=== PATIENT | female | born 1955 ===

== ENCOUNTER 2016-11-02 10:12 | Emergency (ER) | payer MEDICAID ==
[2016-11-02 10:22] VITALS: TEMP 99
--- NOTE | 2016-11-02 11:09 | ED PDOC ---
Arrival/HPI - History of Present Illness Time/Duration: Prior to Arrival Symptom Course: Unchanged Activities at Onset: Rest, Light Context: Home <Lazaro Banuelos - Last Filed: 11/02/16 13:59> - General Historian: Patient, Family <Ellen Garrison - Last Filed: 11/02/16 15:18> - General Chief Complaint: Psychiatric Evaluation Time Seen by Provider: 11/02/16 10:52 - History of Present Illness Narrative History of Present Illness (Text): 11/02/16 13:30 A 61 year old female whose past medical history includes NIDDM, brought in by son, present to the emergency department for a "psych evaluation". The son, who translated, states that the patients had generalized weakness and depression after loosing her . The son notes that the patient was seen by PMD yesterday and a prescription for a blood test was given. They request for all est to be conducted today. Patient denies symptoms of palpitations, homicidal and suicidal ideation, headache, dizziness, chest pain, abdominal pain, nausea, vomiting, diarrhea, shortness of breath, or any other complaint. 11/02/16 13:59 (Lazaro Banuelos) Past Medical History - Provider Review Nursing Documentation Reviewed: Yes <Lazaro Banuelos - Last Filed: 11/02/16 13:59> - Travel History If Yes, travel location?: [place] - Cardiac Hx Cardiac Disorders: No - Pulmonary Hx Respiratory Disorders: No - Neurological Hx Neurological Disorder: No - HEENT Hx HEENT Disorder: No - Renal Hx Renal Disorder: No - Endocrine/Metabolic Hx Endocrine Disorders: Yes Hx Diabetes Mellitus Type 2: Yes - Hematological/Oncological Hx Blood Disorders: No - Integumentary Hx Dermatological Disorder: No - Musculoskeletal/Rheumatological Hx Musculoskeletal Disorders: No - Gastrointestinal Hx Gastrointestinal Disorders: No - Genitourinary/Gynecological Hx Genitourinary Disorders: No - Psychiatric Hx Psychophysiologic Disorder: Yes Hx Substance Use: No <Ellen Garrison - Last Filed: 11/02/16 15:18> Family/Social History - Physician Review Nursing Documentation Reviewed: Yes Family/Social History: No Known Family HX <Lazaro Banuelos - Last Filed: 11/02/16 13:59> Smoking Status: Never Smoked Hx Alcohol Use: No Hx Substance Use: No <Ellen Garrison - Last Filed: 11/02/16 15:18> Allergies/Home Meds <VinLazaro - Last Filed: 11/02/16 13:59> <Ellen Garrison - Last Filed: 11/02/16 15:18> Allergies/Adverse Reactions: Allergies No Known Allergies Allergy (Verified 11/02/16 10:22) Home Medications: Home Meds Medication Instructions Recorded Confirmed Metformin HCl [Glucophage] 850 mg PO DAILY 11/02/16 11/02/16 Risperidone [Risperdal] 1 mg PO DAILY 11/02/16 11/02/16 Review of Systems - Review of Systems Constitutional: Normal Eyes: Normal ENT: Normal Respiratory: absent: SOB Cardiovascular: absent: Chest Pain, Palpitations Gastrointestinal: absent: Abdominal Pain, Diarrhea, Nausea, Vomiting Neurological: Other (Generalized weakness). absent: Headache, Dizziness Psychiatric: Depression. absent: Suicidal Ideation, Other (Homicidal Ideation) <MelvinanatolyLazaro - Last Filed: 11/02/16 13:59> Physical Exam Temperature: Afebrile Blood Pressure: Normal Pulse: Regular Respiratory Rate: Normal - Systems Exam Head: Present: Atraumatic, Normocephalic Pupils: Present: PERRL Extroacular Muscles: Present: EOMI Conjunctiva: Present: Normal Mouth: Present: Moist Mucous Membranes Neck: Present: Normal Range of Motion Respiratory/Chest: Present: Clear to Auscultation, Good Air Exchange. No: Respiratory Distress, Accessory Muscle Use Cardiovascular: Present: Regular Rate and Rhythm, Normal S1, S2. No: Murmurs Abdomen: Present: Normal Bowel Sounds. No: Tenderness, Distention, Peritoneal Signs Back: Present: Normal Inspection Upper Extremity: Present: Normal Inspection. No: Cyanosis, Edema Lower Extremity: Present: Normal Inspection. No: Edema Neurological: Present: GCS=15, CN II-XII Intact, Speech Normal Skin: Present: Warm, Dry, Normal Color. No: Rashes Psychiatric: Present: Alert, Oriented x 3, Normal Insight, Normal Concentration <Lazaro Banuelos - Last Filed: 11/02/16 13:59> Medical Decision Making - EKG Interpretation Interpreted by ED Physician: Yes Type: 12 lead EKG <Lazaro Banuelos - Last Filed: 11/02/16 13:59> Re-evaluation Time: 13:02 - Lab Interpretations Interpretation: All labs normal <Ellen Garrison - Last Filed: 11/02/16 15:18> ED Course and Treatment: 11/02/16 13:07 I was available for consultation during PA evaluation. The chart was reviewed by me, and I agree with disposition. The documented history was done by the physician formula technician. The documented physical exam was done by the physician formula technician. The documented procedures were done by the physician formula technician. (Lazaro Banuelos) 11/02/16 12:37 On re-eval, pt is stable, afebrile, hemodynamicaly stable. Non-toxic. Blood work review and appears normal. EKG, CXR, CT head- normal results. Pt is medically cleared for psych evaluation now. 11/02/16 13:02 Pt was seen by [facility] and psychiatricly cleared for outpt Fu. case discussed with ED attending and discharge recommend with outpt f/u now. On re-eavluation, pt is afebrile, hemodynamicaly stable. NOn-toxic. Neurologicaly intact. results review with son and pt, appears normal. Advised to F/U with PMD and Psychiatrist in 2-3 days for re-evaluation. Return to ED if any worsening or new changes. Pt left prior hip xray was performed and written discharge was given. (Ellen Garrison) - Lab Interpretations Lab Results: 11/02/16 11:45 11/02/16 11:45 Lab Results 11/02/16 12:00: Urine Color Yellow, Urine Appearance Clear, Urine pH 6.5, Ur Specific [place] 1.015, Urine Protein Negative, Urine Glucose (UA) Negative, Urine Ketones Negative, Urine Blood Negative, Urine Nitrate Negative, Urine Bilirubin Negative, Urine Urobilinogen 0.2, Ur Leukocyte Esterase Negative 11/02/16 11:45: Sodium 138, Potassium 4.0, Chloride 100, Carbon Dioxide 28, Anion Gap 14, BUN 21, Creatinine 0.6, Est GFR ( Amer) > 60, Est GFR (Non- Af Amer) > 60, Random Glucose 151 H, Calcium 9.0, Magnesium 1.9, Total Bilirubin 0.4, AST 21, ALT 24, Alkaline Phosphatase 84, Lactate Dehydrogenase 322 L, Total Creatine Kinase 37, Troponin I < 0.01, Total Protein 7.1, Albumin 3.8, Globulin 3.3, Albumin/Globulin Ratio 1.2 11/02/16 11:45: PT 10.4, INR 0.96, APTT 26.6 11/02/16 11:45: WBC 8.6, RBC 4.35, Hgb 13.2, Hct 38.7, MCV 89.0, MCH 30.3, MCHC 34.1, RDW 13.0, Plt Count 304, MPV 9.4, Gran % 58.3, Lymph % (Auto) 31.1, Hill % (Auto) 7.2 H, Eos % (Auto) 3.1, Baso % (Auto) 0.3, Gran # 4.99, Lymph # 2.7, Hill # 0.6, Eos # 0.3, Baso # 0.03 - RAD Interpretation Radiology Orders: 11/02/16 11:06 HEAD W/O CONTRAST [CT] Stat CHEST PORTABLE [RAD] Stat HEAD CT IMPRESSION: Normal CT of the Head. CHEST XRAY: IMPRESSION: No active disease. (Ellen Garrison) - EKG Interpretation EKG Interpretation (Text): 11/02/16 12:37 SR@81/min, NAD, normal intervals, no acute T wave or ST-T changes. (Ellen Garrison) - Scribe Statement The provider has reviewed the documentation as recorded by the Scribe <Lazaro Banuelos - Last Filed: 11/02/16 13:59> <Ellen Garrison - Last Filed: 11/02/16 15:18> - Scribe Statement Franny Gama Provider Scribe Attestation: All medical record entries made by the Scribe were at my direction and personally dictated by me. I have reviewed the chart and agree that the record accurately reflects my personal performance of the history, physical exam, medical decision making, and the department course for this patient. I have also personally directed, reviewed, and agree with the discharge instructions and disposition. (Lazaro Banuelos) Disposition/Present on Arrival <Lazaro Banuelos - Last Filed: 11/02/16 13:59> - Present on Arrival Any Indicators Present on Arrival: No History of DVT/PE: No History of Uncontrolled Diabetes: No Urinary Catheter: No History of Decub. Ulcer: No History Surgical Site Infection Following: None - Disposition Have Diagnosis and Disposition been Completed?: Yes Disposition Time: 13:02 Patient Plan: Discharge <Ellen Garrison - Last Filed: 11/02/16 15:18> - Disposition Diagnosis: Weakness, Depression Disposition: HOME/ ROUTINE Patient Problems: Current Active Problems Problem Status Onset Weakness Acute Depression Acute Condition: STABLE Discharge Instructions (ExitCare): Depression (ED), Weakness (ED) Print Language: [place]ONG [place]ER Additional Instructions: Follow up with PMD and Outpatient mental Clinic for further evaluation and treatment. Return to Ed if any worsening ro new changes. Referrals: PCP,NO [Primary Care Provider] - Follow up with primary Forms: [employer] (Salvadorean)
[2016-11-02 11:59] LABS: ADD MANUAL DIFF? NO
[2016-11-02 12:09] LABS: BASO # 0.03 K/mm3 (0.0-2.0); BASO % 0.3 % (0.0-3.0); EOS # 0.3 (0.0-0.7); EOS % 3.1 % (1.5-5.0); GRAN # 4.99 (1.4-6.5); GRAN % 58.3 % (50.0-68.0); HEMATOCRIT 38.7 % (36.0-48.0); LYMPH # 2.7 (1.2-3.4); LYMPH % 31.1 % (22.0-35.0); MEAN CORPUSCULAR HEMOGLOBIN 30.3 pg (25.0-35.0); MEAN CORPUSCULAR HGB CONC 34.1 g/dl (31.0-37.0); MEAN PLATELET VOLUME 9.4 fl (7.0-11.0); MONO # 0.6 (0.1-0.6); MONO % 7.2 % (1.0-6.0); PLATELET COUNT 304 10^3/uL (120.0-450.0); WHITE BLOOD COUNT 8.6 10^3/ul (4.5-11.0)
--- NOTE | 2016-11-02 12:15 | CT ---
PROCEDURE: CT HEAD WITHOUT CONTRAST. HISTORY: weakness, headache COMPARISON: None available. TECHNIQUE: Axial computed tomography images were obtained through the head/brain without intravenous contrast. Radiation dose: Total exam DLP = 689 mGy-cm. This CT exam was performed using one or more of the following dose reduction techniques: Automated exposure control, adjustment of the mA and/or kV according to patient size, and/or use of iterative reconstruction technique. FINDINGS: HEMORRHAGE: No intracranial hemorrhage. BRAIN: There is no mass-effect or edematous change throughout the worrell or white matter structures above or below the tentorium including the brainstem. No suspicious extra-axial fluid collection is identified with the midline brain anatomy appear diffusely unremarkable. VENTRICLES: Unremarkable. No hydrocephalus. CALVARIUM: Unremarkable. PARANASAL SINUSES: Unremarkable as visualized. No significant inflammatory changes. MASTOID AIR CELLS: Unremarkable as visualized. No inflammatory changes. OTHER FINDINGS: None. IMPRESSION: Normal CT of the Head.
[2016-11-02 12:18] LABS: ALB/GLOB RATIO 1.2 (1.1-1.8); ALKALINE PHOSPHATASE 84 U/L (38-133); ALT/SGPT 24 U/L (7-56); AST/SGOT 21 U/L (15-39); BILIRUBIN,TOTAL 0.4 mg/dL (0.2-1.3); BLOOD UREA NITROGEN 21 mg/dL (7-21); CARBON DIOXIDE 28 mmol/L (21-33); CHLORIDE 100 mmol/L (98-107); GFR AFRICAN-AMERICAN > 60; GLUCOSE,RANDOM 151 mg/dL (70-110); MAGNESIUM 1.9 mg/dL (1.7-2.2); SODIUM 138 mmol/L (132-148); TOTAL PROTEIN 7.1 g/dL (5.8-8.3)
[2016-11-02 12:21] LABS: PH,URINE 6.5 (4.7-8.0); URINE BILIRUBIN NEGATIVE (NEGATIVE); URINE BLOOD NEGATIVE (NEGATIVE); URINE GLUCOSE (UA) NEGATIVE (NEGATIVE); URINE KETONE NEGATIVE (NEGATIVE); URINE LEUKOCYTE ESTERASE NEGATIVE Leu/uL (NEGATIVE); URINE PROTEIN NEGATIVE mg/dL (<30 mg/dL); URINE UROBILINOGEN 0.2 E.U./dL (<1 E.U./dL)
[2016-11-02 12:22] LABS: INR 0.96 (0.93-1.08); PARTIAL THROMBOPLASTIN TIME 26.6 Seconds (23.7-30.8)
[2016-11-02 12:25] LABS: URINE APPEARANCE CLEAR (CLEAR); URINE COLOR YELLOW (YELLOW)
--- NOTE | 2016-11-02 12:25 | RAD ---
HISTORY: weakness COMPARISON: No prior. FINDINGS: LUNGS: No active pulmonary disease. PLEURA: No significant pleural effusion identified, no pneumothorax apparent. CARDIOVASCULAR: Normal. OSSEOUS STRUCTURES: No significant abnormalities. VISUALIZED UPPER ABDOMEN: Normal. OTHER FINDINGS: None. IMPRESSION: No active disease.
[2016-11-02 12:29] LABS: TROPONIN I < 0.01 ng/mL
[2016-11-02 13:19] VITALS: BP 134/77; PULSE 85; RESP 19; O2SAT 100
--- NOTE | 2016-11-03 07:54 | CARD ---
APPROVED REPORT EKG Measurement Heart [id number] <Conclusion> Sinus rhythm with short SC Otherwise normal ECG
--- NOTE | 2016-11-03 09:32 | CP.PCM.PCO ---
Physician Communication Note - Physician Communication Note Physician Communication Note: pt was d/c from ED
== END 2016-11-02 13:30 | disposition home or self-care (01) ==
LOC: ED 10:12
DX: F32.9 Major depressive disorder, single episode, unspecified (principal); R53.1 Weakness